=== PATIENT | female | born 2000 | race Caucasian/White ===

== ENCOUNTER 2018-12-03 16:13 | Emergency (ER) | payer OTHER ==
[~2018-12-03] VITALS: Ht 167.6 cm; Wt 85.3 kg
== END 2018-12-03 22:23 | disposition home or self-care (01) ==
LOC: ER 16:13
DX: O26.893 Other specified pregnancy related conditions, third trimester (principal); K52.9 Noninfective gastroenteritis and colitis, unspecified; Z34.03 Encounter for supervision of normal first pregnancy, third trimester

== ENCOUNTER 2018-12-15 01:09 | Outpatient (CLI) | payer OTHER ==
[2018-12-15] MEDS ORDERED: NIFEDIPINE10 MG PO (12:18)
== END 2018-12-15 13:58 ==
LOC: OBS/DEL 01:09
DX: O60.03 Preterm labor without delivery, third trimester (principal); Z34.83 Encounter for supervision of other normal pregnancy, third trimester

== ENCOUNTER 2018-12-25 04:07 | Inpatient (IN) | payer OTHER ==
[~2018-12-25] VITALS: Ht 170.2 cm; Wt 98.0 kg
[~2018-12-25 04:07] MED LIST: NIFEDIPINE10 MG PO
== END 2018-12-28 09:03 | disposition home or self-care (01) | DRG 832 ==
LOC: LDR 04:07 → OB/GYN 04:07
PROVIDERS: ADMIT Obstetrics & Gynecology
PROC: BY4FZZZ Ultrasonography of Third Trimester, Single Fetus (ICD-10-PCS; principal; 2018-12-25)
PROC: 4A1HXCZ Monitoring of Products of Conception, Cardiac Rate, External Approach (ICD-10-PCS; 2018-12-25)
DX: O47.03 False labor before 37 completed weeks of gestation, third trimester (principal); O98.813 Other maternal infectious and parasitic diseases complicating pregnancy, third trimester; B37.3 Candidiasis of vulva and vagina; Z34.03 Encounter for supervision of normal first pregnancy, third trimester

== ENCOUNTER 2019-01-22 05:08 | Inpatient (IN) | payer OTHER ==
[~2019-01-22] VITALS: Ht 170.2 cm; Wt 98.9 kg
[2019-01-22] MEDS ORDERED: PRENATAL TABLE1 EACH PO (08:19)
== END 2019-01-24 14:36 | disposition home or self-care (01) | DRG 806 ==
LOC: OB/GYN 05:08 → LDR 05:08 → OB/GYN 18:51
PROVIDERS: ADMIT Obstetrics & Gynecology
PROC: 10E0XZZ Delivery of Products of Conception, External Approach (ICD-10-PCS; principal; 2019-01-22)
PROC: 0HQ9XZZ Repair Perineum Skin, External Approach (ICD-10-PCS; 2019-01-22)
PROC: 10907ZC Drainage of Amniotic Fluid, Therapeutic from Products of Conception, Via Natural or Artificial Opening (ICD-10-PCS; 2019-01-22)
PROC: 3E0P7VZ Introduction of Hormone into Female Reproductive, Via Natural or Artificial Opening (ICD-10-PCS; 2019-01-22)
PROC: 3E033VJ Introduction of Other Hormone into Peripheral Vein, Percutaneous Approach (ICD-10-PCS; 2019-01-22)
PROC: 4A1HXCZ Monitoring of Products of Conception, Cardiac Rate, External Approach (ICD-10-PCS; 2019-01-22)
DX: O70.0 First degree perineal laceration during delivery (principal); O41.03X0 Oligohydramnios, third trimester, not applicable or unspecified; Z37.0 Single live birth; Z3A.38 38 weeks gestation of pregnancy; Z22.330 Carrier of Group B streptococcus